=== PATIENT | female | born 1970 | race Caucasian/White ===

== ENCOUNTER 2020-07-13 15:50 | Emergency (ER) | payer OTHER ==
[~2020-07-13] VITALS: Ht 170.2 cm; Wt 59.0 kg
[2020-07-13 15:54] VITALS: BP_SYST 116
[2020-07-13] MEDS ORDERED: PANTOPRAZOLE SODIUM 40 MG/VIAL (PROTONIX) IVP ONE (16:15)
[2020-07-13] MEDS ORDERED: ONDANSETRON HCL 4 MG/2 ML VIAL IVP ONE (16:15)
[2020-07-13] MEDS ORDERED: NACL 0.9% 1,000 ML IV ONE (16:15)
[2020-07-13] MEDS ORDERED: MORPHINE 2 MG/ML INJ. SYRINGE IVP ONE (16:15)
[2020-07-13] MEDS ORDERED: ONDANSETRON HCL 4 MG/2 ML VIAL ONE (16:35)
[2020-07-13 16:40] LABS: BASOPHILS % (AUTO) 0.4 % (0.0-2.0); EOSINOPHILS % (AUTO) 0.3 % (0.0-4.0); HEMATOCRIT 41.1 % (36-48); LYMPHOCYTES # (AUTO) 2.3 K/uL (1.0-5.5); LYMPHOCYTES % (AUTO) 22.6 % (20.5-51.5); MEAN CORPUSCULAR HEMOGLOBIN 31 pg (27-31); MEAN CORPUSCULAR HGB CONC 34 % (32-36); MEAN CORPUSCULAR VOLUME 90 fL (79.0-98.0); MONOCYTES # (AUTO) 0.5 K/uL (0.0-1.0); MONOCYTES % (AUTO) 4.6 % (1.7-9.3); NEUTROPHILS # (AUTO) 7.4 K/uL (1.8-7.7); NEUTROPHILS % (AUTO) 72.1 % (40.0-70.0); PLATELET COUNT (AUTO) 186 K/uL (130-430); RED BLOOD CELL COUNT(AUTO) 4.56 MIL/uL (4.2-6.2); WHITE BLOOD COUNT (AUTO) 10.2 K/uL (4.8-10.8)
[2020-07-13 16:56] LABS: CALCIUM 8.8 mg/dL (8.4-11.0); CREATININE 0.72 mg/dL (0.55-1.30); POTASSIUM 3.2 mmol/L (3.5-5.1)
[2020-07-13 17:02] LABS: ALBUMIN 3.9 g/dL (3.4-4.8)
[2020-07-13] MEDS ORDERED: KETOROLAC TROMETHAMINE 30 MG VIAL IVP ONE (18:00)
[2020-07-13] MEDS ORDERED: POTASSIUM CHLORIDE 20 MEQ TAB.PRT.SR PO ONE (18:00)
[2020-07-13] MEDS ORDERED: DIPHENHYDRAMINE INJ 50 MG/ML VIAL IVP ONE (18:00)
[2020-07-13] MEDS ORDERED: MAGNESIUM CITRATE 300 ML ORAL SOLUTION PO ONE (18:30)
[2020-07-13] MEDS ORDERED: CEPH500C2 PO (18:35)
[2020-07-13 19:03] VITALS: BP_SYST 116
== END 2020-07-13 19:04 | disposition home or self-care (01) ==
LOC: SED 15:50
DX: N39.0 Urinary tract infection, site not specified (principal); E87.6 Hypokalemia; R10.13 Epigastric pain; Z88.8 Allergy status to other drugs, medicaments and biological substances; Z79.899 Other long term (current) drug therapy
CPT/HCPCS: 36415; 74176; 76376; 80053; 81002; 83605; 83690; 85025; 96361; 96374; 96375; 99284; C9113; J1200; J1885; J2270; J2405; J7030; 93005